=== PATIENT | male | born 1970 | race Caucasian/White ===

== ENCOUNTER 2019-09-24 18:52 | Emergency (ER) | payer MEDICAID, SELFPAY ==
[~2019-09-24] VITALS: Ht 182.9 cm; Wt 67.0 kg
[2019-09-24 18:53] VITALS: BP 151/75
[2019-09-24] MEDS ORDERED: BOOSTRIX/ADACEL VACCINE (DIPHTH/PERTUSS/ACELL/TETANUS) 0.5ML SYR IM ONE (19:45)
== END 2019-09-24 19:53 | disposition home or self-care (01) ==
LOC: M ED 18:52
DX: S02.2XXA Fracture of nasal bones, initial encounter for closed fracture (principal); W18.09XA Striking against other object with subsequent fall, initial encounter; Y99.8 Other external cause status; Y92.414 Local residential or business street as the place of occurrence of the external cause; F17.200 Nicotine dependence, unspecified, uncomplicated; S63.502A Unspecified sprain of left wrist, initial encounter; Y93.F9 Activity, other caregiving

== ENCOUNTER 2021-04-24 10:49 | Emergency (ER) | payer MEDICAID, SELFPAY ==
[~2021-04-24] VITALS: Ht 182.9 cm; Wt 91.7 kg
[2021-04-24 11:32] VITALS: BP 142/92
[2021-04-24] MEDS ORDERED: NS 1,000 ML IV ONE (14:35)
[2021-04-24 14:55] LABS: BASO # 0.1 10^3/uL (0.0-0.2); BASO % 0.7 % (0.0-1.0); EOS # 0.7 10^3/uL (0.0-0.5); EOS % 5.2 % (0.0-3.0); HEMOGLOBIN 12.6 g/dl (13.5-17.5); LYMPH # 2.7 10^3/uL (1.5-5.0); LYMPH % 20.8 % (24.0-44.0); MEAN CORPUSCULAR HEMOGLOBIN 32.5 pg (27.0-33.0); MEAN CORPUSCULAR HGB CONC 34.1 g/dl (32.0-36.5); MEAN CORPUSCULAR VOLUME 95.4 fl (80.0-96.0); MONO # 0.9 10^3/uL (0.0-0.8); MONO % 7.1 % (2.0-8.0); NEUTROPHILS # 8.5 10^3/uL (1.5-8.5); NEUTROPHILS % 65.7 % (36.0-66.0); PLATELET COUNT, AUTOMATED 689 10^3/uL (150-450); RED BLOOD COUNT 3.88 10^6/uL (4.30-6.10); WHITE BLOOD COUNT 12.9 10^3/uL (4.0-10.0)
[2021-04-24 15:14] LABS: BLOOD UREA NITROGEN 8 MG/DL (7-18); C REACTIVE PROTEIN QUANTITATIV 2.73 MG/DL (0.00-0.30); CALCIUM LEVEL 9.5 MG/DL (8.5-10.1); CARBON DIOXIDE LEVEL 29 MEQ/L (21-32); CHLORIDE LEVEL 105 MEQ/L (98-107); CREATININE FOR GFR 0.79 MG/DL (0.70-1.30); GLOMERULAR FILTRATION RATE > 60.0 (>56); GLUCOSE, FASTING 95 MG/DL (70-100); POTASSIUM SERUM 4.4 MEQ/L (3.5-5.1); SODIUM LEVEL 139 MEQ/L (136-145)
[2021-04-24 16:05] LABS: ERYTHROCYTE SEDIMENTATION RATE 45 mm/hr (0-20)
[2021-04-24] MEDS ORDERED: CEPHALEXIN 500 MG CAP PO ONE (17:05)
[2021-04-24] MEDS ORDERED: CEPH500C PO (17:08)
== END 2021-04-24 17:32 | disposition home or self-care (01) ==
LOC: M ED 10:49
DX: L76.34 Postprocedural seroma of skin and subcutaneous tissue following other procedure (principal); L03.116 Cellulitis of left lower limb; E78.5 Hyperlipidemia, unspecified; I10 Essential (primary) hypertension; I25.2 Old myocardial infarction; F17.200 Nicotine dependence, unspecified, uncomplicated

== ENCOUNTER → 2022-03-08 | Outpatient (REF) | payer OTHER, MEDICAID ==
[~2022-03-08] MED LIST: CEPH500C PO
[2022-03-08 18:42] LABS: CHOLESTEROL RISK RATIO 4.51 (<5); HDL CHOLESTEROL 28.8 MG/DL (>40); LDL CHOLESTEROL 76.8 MG/DL (<100)
== END ==
LOC: M LAB REF 17:00
PROVIDERS: ATTEND Nurse Practitioner Family
DX: I25.10 Atherosclerotic heart disease of native coronary artery without angina pectoris (principal)

== ENCOUNTER 2022-04-29 08:22 | Emergency (ER) | payer MEDICAID, OTHER ==
[2022-04-29] MEDS ORDERED: ISOVUE-370 76% 100ML VIAL As Ordered ONE (08:34)
[2022-04-29] MEDS ORDERED: TENECTEPLASE 50 MG KIT (TNKase) As Ordered ONE (09:11)
[2022-04-29] MEDS ORDERED: TENECTEPLASE 50 MG KIT (TNKase) IVP ONE (09:15)
[2022-04-29 09:16] LABS: INR 0.95; PARTIAL THROMBOPLASTIN TIME 30.6 SECONDS (24.8-34.2); PROTHROMBIN TIME 12.9 SECONDS (12.5-14.5)
[2022-04-29 09:17] LABS: CK-MB VALUE MASS < 1.0 NG/ML (<3.6)
[2022-04-29 09:19] LABS: BASO % 0.2 % (0.0-1.0); EOS # 0.1 10^3/uL (0.0-0.5); EOS % 0.7 % (0.0-3.0); HEMATOCRIT 45.2 % (42.0-52.0); HEMOGLOBIN 15.6 g/dl (13.5-17.5); LYMPH # 0.7 10^3/uL (1.5-5.0); MEAN CORPUSCULAR HEMOGLOBIN 32.2 pg (27.0-33.0); MEAN CORPUSCULAR HGB CONC 34.5 g/dl (32.0-36.5); MEAN CORPUSCULAR VOLUME 93.4 fl (80.0-96.0); MONO # 0.6 10^3/uL (0.0-0.8); MONO % 5.1 % (2.0-8.0); NEUTROPHILS # 10.7 10^3/uL (1.5-8.5); NEUTROPHILS % 87.5 % (36.0-66.0); PLATELET COUNT, AUTOMATED 268 10^3/uL (150-450); RED BLOOD COUNT 4.84 10^6/uL (4.30-6.10); WHITE BLOOD COUNT 12.3 10^3/uL (4.0-10.0)
[2022-04-29 09:25] LABS: CPK CREATINE PHOSPHOKINASE 140 U/L (46-171); MB/CK RELATIVE INDEX 0.71 (< OR =4)
[2022-04-29 09:40] VITALS: BP 142/72
[2022-04-29 10:05] LABS: RSV AMPLIFICATION NEGATIVE (NEGATIVE)
[2022-04-29] MEDS ORDERED: SODIUM CHLORIDE 0.9% INJ 10 ML SYR IV ONE ×2 (14:00)
== END 2022-04-29 09:50 | disposition short-term general hospital (02) ==
LOC: M ED 08:22
DX: I63.9 Cerebral infarction, unspecified (principal); Z95.1 Presence of aortocoronary bypass graft; I10 Essential (primary) hypertension; E78.5 Hyperlipidemia, unspecified; I25.2 Old myocardial infarction; F17.200 Nicotine dependence, unspecified, uncomplicated; F10.11 Alcohol abuse, in remission; I65.23 Occlusion and stenosis of bilateral carotid arteries; Z88.8 Allergy status to other drugs, medicaments and biological substances
CPT/HCPCS: 70450; 70496; 70498; 71045; 80047; 82550; 82553; 85025; 85610; 85730; 87631; 93005; 93041; 94760; 96374; 96375; 99285; J3101

== ENCOUNTER → 2022-05-06 | Outpatient (CLI) | payer OTHER | LOC: M RAD 09:42 | PROVIDERS: ATTEND Nurse Practitioner Family | DX: L03.119 Cellulitis of unspecified part of limb (principal) ==

== ENCOUNTER → 2022-05-26 | Outpatient (REF) | payer OTHER ==
[2022-05-26 12:59] LABS: CHOLESTEROL RISK RATIO 5.11 (<5); HDL CHOLESTEROL 33.4 MG/DL (>40)
== END ==
LOC: M LAB REF 11:19
PROVIDERS: ATTEND Nurse Practitioner Family
DX: I25.10 Atherosclerotic heart disease of native coronary artery without angina pectoris (principal)

== ENCOUNTER → 2022-08-24 | Outpatient (REF) | payer OTHER ==
[2022-08-24 12:56] LABS: CHOLESTEROL RISK RATIO 3.95 (<5); HDL CHOLESTEROL 32.4 MG/DL (>40); LDL CHOLESTEROL 79.4 MG/DL (<100); NON-HDL-C 95.6 MG/DL
== END ==
LOC: M LAB REF 12:13
PROVIDERS: ATTEND Nurse Practitioner Family
DX: E78.5 Hyperlipidemia, unspecified (principal)

== ENCOUNTER → 2022-11-17 | Outpatient (REF) | payer OTHER ==
[2022-11-17 15:35] LABS: VITAMIN B12 LEVEL 282 PG/ML (211-911)
[2022-11-17 15:39] LABS: CHOLESTEROL LEVEL 138 MG/DL (<200); CHOLESTEROL RISK RATIO 3.87 (<5); HDL CHOLESTEROL 35.6 MG/DL (>40); LDL CHOLESTEROL 68.6 MG/DL (<100); MAGNESIUM LEVEL 1.4 MG/DL (1.8-2.4); NON-HDL-C 102.4 MG/DL; TRIGLYCERIDES LEVEL 169 MG/DL (<150)
[2022-11-17 16:01] LABS: FOLATE > 24.0 NG/ML (>5.4)
== END ==
LOC: M LAB REF 12:02
PROVIDERS: ATTEND Nurse Practitioner Family
DX: R20.2 Paresthesia of skin (principal); E78.5 Hyperlipidemia, unspecified; R52 Pain, unspecified

== ENCOUNTER → 2023-05-18 | Outpatient (REF) | payer OTHER ==
[2023-05-18 15:25] LABS: BASO # 0.1 10^3/uL (0.0-0.2); BASO % 0.6 % (0.0-1.0); EOS # 0.3 10^3/uL (0.0-0.5); EOS % 2.5 % (0.0-3.0); HEMATOCRIT 45.6 % (42.0-52.0); HEMOGLOBIN 15.9 g/dl (13.5-17.5); LYMPH # 3.3 10^3/uL (1.5-5.0); LYMPH % 31.4 % (24.0-44.0); MEAN CORPUSCULAR HEMOGLOBIN 33.6 pg (27.0-33.0); MEAN CORPUSCULAR HGB CONC 34.9 g/dl (32.0-36.5); MEAN CORPUSCULAR VOLUME 96.4 fl (80.0-96.0); MONO % 9.7 % (2.0-8.0); NEUTROPHILS # 5.8 10^3/uL (1.5-8.5); NEUTROPHILS % 55.5 % (36.0-66.0); PLATELET COUNT, AUTOMATED 339 10^3/uL (150-450); RED BLOOD COUNT 4.73 10^6/uL (4.30-6.10); WHITE BLOOD COUNT 10.4 10^3/uL (4.0-10.0)
[2023-05-18 15:43] LABS: HEMOGLOBIN A1c 5.5 % (4.0-6.0)
[2023-05-18 15:54] LABS: PSA SCREENING 0.86 NG/ML (< 4.00)
[2023-05-18 15:56] LABS: ALKALINE PHOSPHATASE 85 U/L (46-116); ALT/SGPT 29 U/L (7.0-40); AST/SGOT 17 U/L (<34); BILIRUBIN,TOTAL 0.5 MG/DL (0.3-1.2); BLOOD UREA NITROGEN 10 MG/DL (9-23); CALCIUM LEVEL 9.7 MG/DL (8.5-10.1); CARBON DIOXIDE LEVEL 29 MMOL/L (20-31); CHLORIDE LEVEL 100 MMOL/L (98-107); CREATININE FOR GFR 0.82 MG/DL (0.70-1.30); GLOMERULAR FILTRATION RATE > 60.0 (>56); GLUCOSE, FASTING 100 MG/DL (60-100); MAGNESIUM LEVEL 1.6 MG/DL (1.8-2.4); POTASSIUM SERUM 4.6 MMOL/L (3.5-5.1); SODIUM LEVEL 134 MMOL/L (136-145); TOTAL PROTEIN 7.2 G/DL (5.7-8.2)
[2023-05-18 15:58] LABS: THYROID STIMULATING HORMONE 2.138 uIU/ML (0.55-4.78)
== END ==
LOC: M LAB REF 13:34
PROVIDERS: ATTEND Nurse Practitioner Family
DX: E83.42 Hypomagnesemia (principal); E66.3 Overweight; R79.89 Other specified abnormal findings of blood chemistry; F10.20 Alcohol dependence, uncomplicated; Z12.5 Encounter for screening for malignant neoplasm of prostate; E55.9 Vitamin D deficiency, unspecified

== ENCOUNTER → 2023-12-14 | Outpatient (CLI) | payer OTHER | LOC: M RAD 09:48 | PROVIDERS: ATTEND Nurse Practitioner Family | DX: M25.571 Pain in right ankle and joints of right foot (principal); M25.572 Pain in left ankle and joints of left foot ==

== ENCOUNTER → 2024-01-18 | Outpatient (REF) | payer OTHER ==
[2024-01-18 18:07] LABS: VITAMIN B12 LEVEL 423 PG/ML (211-911)
[2024-01-18 18:10] LABS: CHOLESTEROL LEVEL 138 MG/DL (<200); CHOLESTEROL RISK RATIO 3.55 (<5); HDL CHOLESTEROL 38.8 MG/DL (>40); MAGNESIUM LEVEL 1.5 MG/DL (1.8-2.4); NON-HDL-C 99.2 MG/DL; TRIGLYCERIDES LEVEL 86 MG/DL (<150)
[2024-01-18 18:14] LABS: FOLATE > 24.0 NG/ML (>5.4)
== END ==
LOC: M LAB REF 16:49
PROVIDERS: ATTEND Nurse Practitioner Family
DX: I25.10 Atherosclerotic heart disease of native coronary artery without angina pectoris (principal); E83.42 Hypomagnesemia; F10.20 Alcohol dependence, uncomplicated

== ENCOUNTER → 2024-07-11 | Outpatient (CLI) | payer MEDICAID | LOC: M RAD 13:21 | PROVIDERS: ATTEND Nurse Practitioner Family | DX: M79.604 Pain in right leg (principal); M79.605 Pain in left leg ==

== ENCOUNTER → 2024-08-17 | Outpatient (REF) | payer MEDICAID ==
[2024-08-17 12:59] LABS: BASO # 0.1 10^3/uL (0.0-0.2); BASO % 0.5 % (0.0-1.0); EOS # 0.2 10^3/uL (0.0-0.5); EOS % 1.6 % (0.0-3.0); HEMATOCRIT 41.7 % (42.0-52.0); HEMOGLOBIN 14.7 g/dl (13.5-17.5); LYMPH # 3.9 10^3/uL (1.5-5.0); LYMPH % 34.7 % (24.0-44.0); MEAN CORPUSCULAR HEMOGLOBIN 33.8 pg (27.0-33.0); MEAN CORPUSCULAR HGB CONC 35.3 g/dl (32.0-36.5); MEAN CORPUSCULAR VOLUME 95.9 fl (80.0-96.0); MONO # 1.2 10^3/uL (0.0-0.8); MONO % 10.6 % (2.0-8.0); NEUTROPHILS # 5.8 10^3/uL (1.5-8.5); PLATELET COUNT, AUTOMATED 285 10^3/uL (150-450); RED BLOOD COUNT 4.35 10^6/uL (4.30-6.10); WHITE BLOOD COUNT 11.2 10^3/uL (4.0-10.0)
[2024-08-17 13:04] LABS: ALBUMIN 3.9 G/DL (3.2-5.2); ALKALINE PHOSPHATASE 71 U/L (40-129); ALT/SGPT 30 U/L (7.0-40); AST/SGOT 19 U/L (<34); BILIRUBIN,DIRECT 0.1 MG/DL (<0.4); BILIRUBIN,TOTAL 0.4 MG/DL (0.3-1.2); BLOOD UREA NITROGEN 9 MG/DL (9-23); CALCIUM LEVEL 9.4 MG/DL (8.5-10.1); CARBON DIOXIDE LEVEL 27 MMOL/L (20-31); CHLORIDE LEVEL 100 MMOL/L (98-107); CHOLESTEROL LEVEL 240 MG/DL (<200); CHOLESTEROL RISK RATIO 5.44 (<5); CREATININE FOR GFR 0.73 MG/DL (0.70-1.30); GLOMERULAR FILTRATION RATE > 90.0 (>56); GLUCOSE, FASTING 88 MG/DL (60-100); HDL CHOLESTEROL 44.1 MG/DL (>40); LDL CHOLESTEROL 159.3 MG/DL (<100); MAGNESIUM LEVEL 1.6 MG/DL (1.8-2.4); NON-HDL-C 195.9 MG/DL; POTASSIUM SERUM 4.3 MMOL/L (3.5-5.1); PSA SCREENING 0.79 NG/ML (< 4.00); SODIUM LEVEL 133 MMOL/L (136-145); TRIGLYCERIDES LEVEL 183 MG/DL (<150)
== END ==
LOC: M LAB REF 11:59
PROVIDERS: ATTEND Nurse Practitioner Family
DX: I25.10 Atherosclerotic heart disease of native coronary artery without angina pectoris (principal); F10.20 Alcohol dependence, uncomplicated; M79.604 Pain in right leg; M79.605 Pain in left leg; Z12.5 Encounter for screening for malignant neoplasm of prostate; E83.42 Hypomagnesemia

== ENCOUNTER → 2024-10-24 | Outpatient (REF) | payer MEDICAID ==
[2024-10-24 18:48] LABS: CALCIUM LEVEL 9.0 MG/DL (8.5-10.1); CARBON DIOXIDE LEVEL 27 MMOL/L (20-31); CHLORIDE LEVEL 106 MMOL/L (98-107); CHOLESTEROL LEVEL 114 MG/DL (<200); CHOLESTEROL RISK RATIO 4.11 (<5); CREATININE FOR GFR 0.98 MG/DL (0.70-1.30); GLOMERULAR FILTRATION RATE > 90.0 (>56); LDL CHOLESTEROL 64.1 MG/DL (<100); MAGNESIUM LEVEL 1.4 MG/DL (1.8-2.4); NON-HDL-C 86.3 MG/DL; POTASSIUM SERUM 4.4 MMOL/L (3.5-5.1); SODIUM LEVEL 142 MMOL/L (136-145); TRIGLYCERIDES LEVEL 111 MG/DL (<150)
[2024-10-24 19:12] LABS: BASO # 0.1 10^3/uL (0.0-0.2); BASO % 0.7 % (0.0-1.0); EOS # 0.3 10^3/uL (0.0-0.5); EOS % 3.2 % (0.0-3.0); LYMPH # 4.0 10^3/uL (1.5-5.0); LYMPH % 39.1 % (24.0-44.0); MONO # 1.0 10^3/uL (0.0-0.8); MONO % 10.1 % (2.0-8.0); NEUTROPHILS # 4.7 10^3/uL (1.5-8.5); NEUTROPHILS % 46.6 % (36.0-66.0); PLATELET COUNT, AUTOMATED 247 10^3/uL (150-450)
== END ==
LOC: M LAB REF 18:08
PROVIDERS: ATTEND Nurse Practitioner Family
DX: D72.829 Elevated white blood cell count, unspecified (principal); E83.42 Hypomagnesemia; E78.5 Hyperlipidemia, unspecified

== ENCOUNTER 2025-02-28 07:57 | Emergency (ER) | payer OTHER ==
[~2025-02-28] VITALS: Ht 182.9 cm; Wt 99.8 kg
[2025-02-28] MEDS ORDERED: LISI20TA33 (08:07)
[2025-02-28] MEDS ORDERED: MAGN400T35 (08:07)
[2025-02-28] MEDS ORDERED: METO1TAB87 (08:07)
[2025-02-28] MEDS ORDERED: ASPI-226 (08:07)
[2025-02-28] MEDS ORDERED: ATOR80TA59 (08:07)
[2025-02-28] MEDS ORDERED: VITA200032 (08:07)
[2025-02-28 10:55] LABS: BASO # 0.1 10^3/uL (0.0-0.2); BASO % 0.4 % (0.0-1.0); EOS # 0.3 10^3/uL (0.0-0.5); EOS % 2.2 % (0.0-3.0); LYMPH # 3.6 10^3/uL (1.5-5.0); LYMPH % 31.3 % (24.0-44.0); MONO # 1.2 10^3/uL (0.0-0.8); MONO % 10.6 % (2.0-8.0); NEUTROPHILS # 6.4 10^3/uL (1.5-8.5); NEUTROPHILS % 55.0 % (36.0-66.0); PLATELET COUNT, AUTOMATED 275 10^3/uL (150-450)
[2025-02-28 11:20] LABS: CALCIUM LEVEL 9.2 MG/DL (8.5-10.1); CARBON DIOXIDE LEVEL 28 MMOL/L (20-31); CHLORIDE LEVEL 104 MMOL/L (98-107); CREATININE FOR GFR 0.79 MG/DL (0.70-1.30); GLOMERULAR FILTRATION RATE > 90.0 (>56); POTASSIUM SERUM 4.5 MMOL/L (3.5-5.1); SODIUM LEVEL 138 MMOL/L (136-145)
[2025-02-28] MEDS ORDERED: ISOVUE-370 76% 100 ML VIAL As Ordered ONE (11:30)
[2025-02-28] MEDS ORDERED: PERI0.126 PO (12:19)
[2025-02-28 12:39] VITALS: BP 165/79; TEMP 97.1; O2SAT 96
== END 2025-02-28 12:40 | disposition home or self-care (01) ==
LOC: M ED 07:57
DX: K13.79 Other lesions of oral mucosa (principal); I10 Essential (primary) hypertension; E78.5 Hyperlipidemia, unspecified; F17.200 Nicotine dependence, unspecified, uncomplicated; Z86.79 Personal history of other diseases of the circulatory system; Z88.8 Allergy status to other drugs, medicaments and biological substances; Z79.82 Long term (current) use of aspirin; Z79.02 Long term (current) use of antithrombotics/antiplatelets; Z79.899 Other long term (current) drug therapy
CPT/HCPCS: 36415; 70491; 76536; 80048; 85025; 99284; Q9967

== ENCOUNTER → 2025-03-26 | Outpatient (REF) | payer OTHER ==
[~2025-03-26] MED LIST changes: +ASPI-226; +ATOR80TA59; +LISI20TA33; +MAGN400T35; +METO1TAB87; +PERI0.126 PO; +VITA200032
== END ==
LOC: M LAB REF 17:45
PROVIDERS: ATTEND Otolaryngology
DX: C02.2 Malignant neoplasm of ventral surface of tongue (principal)

== ENCOUNTER → 2025-04-08 | Outpatient (CLI) | payer OTHER | LOC: M PLARAD 12:08 | PROVIDERS: ATTEND Otolaryngology | DX: C02.9 Malignant neoplasm of tongue, unspecified (principal) | CPT/HCPCS: 78815; A9552 ==